=== PATIENT | female | born 1975 | race Native Hawaiian/Other Pacific Islander ===

== ENCOUNTER 2021-07-30 09:21 | Outpatient (CLI) | payer BC ==
[~2021-07-30 09:21] MED LIST: ADIPEX PO; ADIPEX-P37.5 M1 OR; CELEXA10 MG OR; HYDR25TA60 PO
== END 2021-07-30 20:13 | disposition home or self-care (01) ==
LOC: US 09:21
PROVIDERS: ATTEND Nurse Practitioner Family
DX: E11.9 Type 2 diabetes mellitus without complications (principal); R74.8 Abnormal levels of other serum enzymes; E05.90 Thyrotoxicosis, unspecified without thyrotoxic crisis or storm; I10 Essential (primary) hypertension; E78.5 Hyperlipidemia, unspecified

== ENCOUNTER 2021-08-23 09:49 | Outpatient (CLI) | payer BC | END 2021-08-23 19:24 | disposition home or self-care (01) | LOC: MAMMO 09:49 | PROVIDERS: ATTEND Nurse Practitioner Family | DX: Z12.31 Encounter for screening mammogram for malignant neoplasm of breast (principal); I10 Essential (primary) hypertension; E78.5 Hyperlipidemia, unspecified; E66.01 Morbid (severe) obesity due to excess calories; R73.03 Prediabetes ==

== ENCOUNTER 2021-10-01 14:43 | Outpatient (CLI) | payer BC | END 2021-10-01 19:45 | disposition home or self-care (01) | LOC: RAD 14:43 | PROVIDERS: ATTEND Nurse Practitioner Family | DX: Z01.818 Encounter for other preprocedural examination (principal); I10 Essential (primary) hypertension; E78.5 Hyperlipidemia, unspecified; E11.9 Type 2 diabetes mellitus without complications; E66.01 Morbid (severe) obesity due to excess calories | CPT/HCPCS: 93005 ==

== ENCOUNTER 2022-06-13 15:53 | Outpatient (CLI) | payer BC | END 2022-06-13 20:57 | disposition home or self-care (01) | LOC: LABW 15:53 | PROVIDERS: ATTEND Nurse Practitioner Family | DX: R79.89 Other specified abnormal findings of blood chemistry (principal) | CPT/HCPCS: 36415; 84436; 84443; 84479; 86376; 86800 ==